=== PATIENT | female | born 1965 | race Caucasian/White ===

== ENCOUNTER → 2017-08-19 | Emergency (ER) | payer OTHER ==
[~2017-08-19] VITALS: Ht 157.5 cm; Wt 113.4 kg
[~2017-08-19] MED LIST: DICLOFENAC SODI50 MG PO; VASOTEC20 M1
== END | disposition home or self-care (01) ==
LOC: ER 20:49
DX: M25.561 Pain in right knee (principal)

== ENCOUNTER → 2017-09-17 | Emergency (ER) | payer OTHER | END | disposition left against medical advice (07) | LOC: ER 17:25 | DX: Z53.20 Procedure and treatment not carried out because of patient's decision for unspecified reasons (principal) ==

== ENCOUNTER 2017-10-20 09:25 | Outpatient (CLI) | payer OTHER | END 2017-10-20 09:50 | disposition home or self-care (01) | LOC: SONOGRAMA 09:25 → MAMO-SONO 10:15 | DX: R10.2 Pelvic and perineal pain (principal) ==